=== PATIENT | male | born 1970 | race Two or more races ===

== ENCOUNTER 2022-02-20 11:30 | Emergency (ER) | payer OTHER ==
[~2022-02-20] VITALS: Ht 170.2 cm; Wt 64.4 kg
[2022-02-20] MEDS ORDERED: RESTORIL30 MG PO (11:50)
[2022-02-20] MEDS ORDERED: LAMOTRIGINE25 M3 PO (11:50)
[2022-02-20] MEDS ORDERED: SERTRALINE20 MG/1 ML (11:50)
[2022-02-20] MEDS ORDERED: ODEFSEY TABLET1 EACH PO (11:51)
[2022-02-20] MEDS ORDERED: ATORVASTATIN CA10 MG PO (11:51)
[2022-02-20] MEDS ORDERED: KETO10TA2 PO (16:02)
[2022-02-20] MEDS ORDERED: NORFLEX100MG PO (16:02)
== END 2022-02-20 16:27 | disposition home or self-care (01) ==
LOC: ER 11:30
DX: S00.93XA Contusion of unspecified part of head, initial encounter (principal); X58.XXXA Exposure to other specified factors, initial encounter; Y93.89 Activity, other specified; Y92.9 Unspecified place or not applicable; Y99.9 Unspecified external cause status

== ENCOUNTER 2022-04-09 13:12 | Outpatient (CLI) | payer OTHER ==
[~2022-04-09 13:12] MED LIST: ATORVASTATIN CA10 MG PO; KETO10TA2 PO; LAMOTRIGINE25 M3 PO; NORFLEX100MG PO; ODEFSEY TABLET1 EACH PO; RESTORIL30 MG PO; SERTRALINE20 MG/1 ML
== END 2022-04-09 13:17 | disposition home or self-care (01) ==
LOC: NUCLEAR 13:12
PROVIDERS: ATTEND Internal Medicine
DX: M85.80 Other specified disorders of bone density and structure, unspecified site (principal)

== ENCOUNTER → 2022-05-04 | Emergency (ER) | payer OTHER ==
[~2022-05-04] VITALS: Ht 170.2 cm; Wt 63.5 kg
== END | disposition left against medical advice (07) ==
LOC: ER 01:09
DX: Z53.21 Procedure and treatment not carried out due to patient leaving prior to being seen by health care provider (principal)